=== PATIENT | female | born 1980 | race Caucasian/White ===

== ENCOUNTER → 2018-12-29 | Outpatient (CLI) | payer OTHER ==
[~2018-12-29] MED LIST: CIPR500 PO; CITA20 PO; CYCL10 PO; LORA2 PO; MECL25 PO; NAPR220 PO; NAPR550 PO; OXYACE5T PO; PENVK500 PO; PRED20 PO; ROXICODONE5 MG PO; RXNAPNA550 PO; TRAM50 PO; ZYRTEC10 M2 PO
[2018-12-30 15:07] LABS: HPV 16 Negative (Negative); HPV 18 Negative (Negative); HPV OTHER HR TYPES Negative (Negative)
== END | disposition home or self-care (01) ==
LOC: LAB 13:05 → LAB SHORT 13:05
PROVIDERS: Nurse Practitioner Women's Health
DX: Z12.4 Encounter for screening for malignant neoplasm of cervix (principal)
CPT/HCPCS: 87624; G0123

== ENCOUNTER 2019-09-20 11:17 | Day surgery (SDC) | payer OTHER ==
[~2019-09-20] VITALS: Ht 162.6 cm; Wt 84.2 kg
[~2019-09-20 11:17] MED LIST changes: +TUMS500 MG PO
--- NOTE | 2019-09-20 11:48 | NUR ---
09/20/19 1148 Lashon Flores 1ST IV ATTEMPT IN LEFT HAND INFILTRATED
--- NOTE | 2019-09-20 12:23 | NUR ---
09/20/19 1223 Truman Morley ABDOMEN PREPPED BY [email or web address].
== END 2019-09-20 14:00 | disposition home or self-care (01) ==
LOC: ORSCSDS 11:17
PROVIDERS: Obstetrics & Gynecology
PROC: 0DNU4ZZ Release Omentum, Percutaneous Endoscopic Approach (ICD-10-PCS; principal; 2019-09-20 13:15)
DX: N92.1 Excessive and frequent menstruation with irregular cycle (principal); K66.0 Peritoneal adhesions (postprocedural) (postinfection); D25.9 Leiomyoma of uterus, unspecified; N94.6 Dysmenorrhea, unspecified; N94.10 Unspecified dyspareunia; R10.2 Pelvic and perineal pain; N80.3 Endometriosis of pelvic peritoneum; F17.210 Nicotine dependence, cigarettes, uncomplicated; E66.9 Obesity, unspecified; Z68.32 Body mass index [BMI] 32.0-32.9, adult
CPT/HCPCS: J0171; J0690; J1100; J1885; J2250; J2405; J2704; J3010; J7120

== ENCOUNTER 2020-05-25 12:37 | Day surgery (SDC) | payer OTHER ==
[~2020-05-25] VITALS: Ht 162.6 cm; Wt 85.0 kg
--- NOTE | 2020-05-25 15:19 | NUR ---
Ambulatory TO ROOM 218 FOR PREOP. PATIENT WITH EXTENDED WAIT SO PREOP DONE IN POST OP ROOM. History, Chart, Medications and Allergies reviewed before start of procedure.Patient confirms NPO status and agrees with scheduled surgery. Patient reports completing Chlorhexadine shower X2 prior to admission to hospital.Surgical site prepped with 2% Chlorhexidine cloth wipe.
--- NOTE | 2020-05-25 21:13 | NUR ---
PT UP TO ICU 1 FROM OR. TOTAL HYSTERECTOMY PERFORMED VIA LAP. PT GIVEN 2 OF VERSED, 550MCG OF FENTANYL, DECADRON, ZOFRAN, TORADOL, 2700 MLS OF NS. PT HAD EBL OF MLS. PT AWAKE, ALERT, ORIENTED. VSS. 4 LAP INCISIONS. DRESSING C/D/I. DENIES PAIN AT THIS TIME.
--- NOTE | 2020-05-25 21:45 | NUR ---
LAP SITE ON R SIDE ABD OOZING. PRESSURE HELD FOR ABOUT 5 MIN AND THEN REINFORCED WITH 4X4 GAUZE AND TAPE. CURRENTLY NOT BLEEDING. DRESSING C/D/I
--- NOTE | 2020-05-26 00:21 | NUR ---
PT TRANSFERED FROM ICU/RECOVERY AT APPROX 2220. S/P LAVH. LAP SITES WITH DERMABOND AND GAUZE. PER REPORT FROM RELIABILITY TECHNICIAN, INCISION SITE TO RIGHT ABD IS OOZING BLOODY DRG. DR AWARE. GAUZE PLACED AND PRESSURE WAS HELD TO SITE PRIOR TO ARRIVAL. VS WNL. PT REPORTS CRAMPING PAIN TO ABD. MEDICATED WITH TORADOL, PERCOCET AND 25MCG OF FENTANYL. FAM DRAINING CLEAR YELLOW URINE. RONAL PAD IN PLACE WITHOUT DRAINAGE. PT CURRENTLY RESTING WITHOUT COMPLAINTS.
[2020-05-26 05:01] LABS: BASOPHILS ABSOLUTE AUTO 0.01 K/mm3 (0.00-0.23); BASOPHILS PERCENT AUTO 0 % (0-2); EOSINOPHILS PERCENT AUTO 0 % (0-6); Hematocrit 37.4 % (33.0-51.0); Hemoglobin 12.1 g/dL (11.5-16.0); IMMATURE GRAN ABSOLUTE AUTO 0.05 K/mm3 (0.00-0.10); IMMATURE GRAN PERCENT AUTO 0 % (0-1); LYMPHOCYTES ABSOLUTE AUTO 0.89 K/mm3 (0.84-5.20); LYMPHOCYTES PERCENT AUTO 6 % (21-46); MONOCYTES ABSOLUTE AUTO 0.15 K/mm3 (0.16-1.47); MONOCYTES PERCENT AUTO 1 % (4-13); Mean Corpuscular HGB 28.9 pg (26.0-34.0); Mean Corpuscular HGB Conc 32.4 g/dL (31.5-36.5); Mean Corpuscular Volume 89 fL (80-100); Mean Platelet Volume 10.8 fL (9.1-12.4); NEUTROPHILS ABSOLUTE AUTO 13.51 K/mm3 (1.96-9.15); NEUTROPHILS PERCENT AUTO 93 % (41-73); Platelet Count 312 K/mm3 (150-400); RDW Coefficient Variation 13.1 % (11.7-14.2); Red Blood Cell Count 4.19 M/mm3 (3.80-5.20); White Blood Cell Count 14.61 K/mm3 (4.00-11.30)
--- NOTE | 2020-05-26 06:16 | NUR ---
FAM TAKEN OUT AT APPROX 0600. WAITING FOR POST VOID.
--- NOTE | 2020-05-26 09:10 | NUR ---
PT WITH 4 INCISION SITES TO ABD, DRESSED WITH NO DRAINAGE NOTED. ABD SOFT BUT TENDER TO BE EXPECTED. PT AMBULATED TO BATHROOM WITH EVEN STEADY GAIT. PT REPORTS GOOD PAIN CONTROL
[2020-05-26] MEDS ORDERED: DOCU100 PO (12:57)
[2020-05-26] MEDS ORDERED: ESTRADIOL2 MG PO (12:58)
[2020-05-26] MEDS ORDERED: Milk Of Ma400 MG/5 M PO (12:58)
[2020-05-26] MEDS ORDERED: SENN187 PO (12:59)
[2020-05-26] MEDS ORDERED: PROM25 PO (13:02)
[2020-05-26] MEDS ORDERED: SIME80CH PO (13:02)
--- NOTE | 2020-05-26 14:14 | NUR ---
ASSUMED CARE OF PT AT APROX 1400. PT APPEARS TO BE RESTING COMFORTABLY AT THIS TIME. LAP SITES X'S 5 C/D/I. PT REPORTS FLATUS.
--- NOTE | 2020-05-26 17:08 | NUR ---
DISCHARGE PT DISCHARGED HOME FROM UNIT AT APROX 1708. PT GIVEN WRITTEN AND VERBAL DISCHARGE INSTRUCTIONS AND VERBALIZED UNDERSTANING OF INSTRUCTIONS. IV REMOVED, PT TOLERATED WELL. WHEELCHAIR TO CAR.
== END 2020-05-26 18:29 | disposition home or self-care (01) ==
LOC: ORSCMMR 12:37 → ORD 14:30 → SURS 22:16 → ORSCMMR 05-26 18:29
PROVIDERS: Obstetrics & Gynecology
PROC: 0UT24ZZ Resection of Bilateral Ovaries, Percutaneous Endoscopic Approach (ICD-10-PCS; principal; 2020-05-25 14:30)
PROC: 0UT94ZZ Resection of Uterus, Percutaneous Endoscopic Approach (ICD-10-PCS; principal; 2020-05-25 14:30)
PROC: 0UT74ZZ Resection of Bilateral Fallopian Tubes, Percutaneous Endoscopic Approach (ICD-10-PCS; principal; 2020-05-25 14:30)
PROC: 8E0W4CZ Robotic Assisted Procedure of Trunk Region, Percutaneous Endoscopic Approach (ICD-10-PCS; principal; 2020-05-25 14:30)
DX: N92.0 Excessive and frequent menstruation with regular cycle (principal); D25.2 Subserosal leiomyoma of uterus; N80.3 Endometriosis of pelvic peritoneum; N94.6 Dysmenorrhea, unspecified; N94.10 Unspecified dyspareunia; R10.2 Pelvic and perineal pain; F17.210 Nicotine dependence, cigarettes, uncomplicated
CPT/HCPCS: 58571; S2900; 36415; 85025; 88307; J0690; J1100; J1885; J2250; J2405; J2550; J2704; J3010; J7120

== ENCOUNTER → 2021-09-15 | Outpatient (CLI) | payer OTHER ==
[~2021-09-15] MED LIST changes: +DOCU100 PO; +ESTRADIOL2 MG PO; +Milk Of Ma400 MG/5 M PO; +PROM25 PO; +SENN187 PO; +SIME80CH PO
[2021-09-15 16:10] LABS: BASOPHILS ABSOLUTE AUTO 0.01 K/mm3 (0.00-0.23); BASOPHILS PERCENT AUTO 0 % (0-2); EOSINOPHILS ABSOLUTE AUTO 0.01 K/mm3 (0.00-0.68); EOSINOPHILS PERCENT AUTO 0 % (0-6); Hematocrit 43.1 % (33.0-51.0); Hemoglobin 15.4 g/dL (11.5-16.0); IMMATURE GRAN ABSOLUTE AUTO 0.02 K/mm3 (0.00-0.10); IMMATURE GRAN PERCENT AUTO 0 % (0-1); LYMPHOCYTES ABSOLUTE AUTO 1.61 K/mm3 (0.84-5.20); LYMPHOCYTES PERCENT AUTO 23 % (21-46); MONOCYTES ABSOLUTE AUTO 0.47 K/mm3 (0.16-1.47); MONOCYTES PERCENT AUTO 7 % (4-13); Mean Corpuscular HGB 30.6 pg (26.0-34.0); Mean Corpuscular HGB Conc 35.7 g/dL (31.5-36.5); Mean Corpuscular Volume 86 fL (80-100); NEUTROPHILS ABSOLUTE AUTO 4.84 K/mm3 (1.96-9.15); NEUTROPHILS PERCENT AUTO 70 % (41-73); Platelet Count 199 K/mm3 (150-400); RDW Coefficient Variation 12.4 % (11.7-14.2); RDW Standard Deviation 37.7 fL (35.1-46.3); Red Blood Cell Count 5.04 M/mm3 (3.80-5.20); White Blood Cell Count 6.96 K/mm3 (4.00-11.30)
[2021-09-15 16:20] LABS: Alanine Aminotransfer (ALT/SGP 59 U/L (12-78); Albumin, Blood 3.9 g/dL (3.4-5.0); Albumin/Globulin Ratio 1.1 (0.8-1.8); Alk Phos 82 U/L (40-126); Anion Gap 15 mmol/L (6-16); Aspartate Aminotrans (AST/SGOT 55 U/L (12-37); Bilirubin, Total 0.5 mg/dL (0.1-1.0); Blood Urea Nitrogen 13 mg/dL (8-24); Bun/Creatinine Ratio 13.5 (12.0-20.0); CO2, Blood 22 mmol/L (21-32); Chloride, Blood 96 mmol/L (98-108); Creatinine, Blood 0.96 mg/dL (0.40-1.00); Globulin, Blood 3.6 g/dL (2.2-4.0); Glomerular Filtration Rate >60 (60-); Glucose, Blood 120 mg/dL (70-99); Potassium, Blood 3.7 mmol/L (3.5-5.5); Sodium, Blood 133 mmol/L (136-145); Total Protein, Blood 7.5 g/dL (6.4-8.2)
== END | disposition home or self-care (01) ==
LOC: LAB SHORT 16:04 → LAB 16:04
PROVIDERS: Physician Assistant
DX: R50.9 Fever, unspecified (principal)
CPT/HCPCS: 80053; 85025